=== PATIENT | female | born 1990 | race Caucasian/White ===

== ENCOUNTER 2017-10-09 23:17 | Outpatient (CLI) | payer OTHER ==
[~2017-10-09] VITALS: Ht 162.6 cm; Wt 77.1 kg
[~2017-10-09 23:17] MED LIST: CLEOCIN300 MG PO; FLEXERIL10 MG PO; FLINTSTONES1 TABLET PO; HYDROCODON-ACE1 EAC7 PO; IBUPROFEN600 MG PO; LORTAB 5-325 M1 EACH PO; METHADONE10 MG PO; METHADOSE10 MG PO; MILK OF MAGN PO; MILK OF MAGNESI10 ML PO; MOTRIN600 MG PO; MOTRIN800 MG PO; Methadone PO; NAPROSYN500 MG PO; NAPROXEN500 MG PO; PERCOCET 5/31 TABLET PO; PRENATAL VITAM1 EAC3 PO; SEASONIQUE 01 TABLET PO; ULTRAM50 MG PO; ~No Medications
[2017-10-09 23:27] VITALS: BP 130/65
[2017-10-10 00:43] LABS: APPEARANCE SL.HAZY ((CLEAR)); BILIRUBIN NEGATIVE; BLOOD NEGATIVE; COLOR AMBER ((YELLOW)); GLUCOSE (STRIP) NEGATIVE; KETONES NEGATIVE; LEUKOCYTES NEGATIVE; NITRITE NEGATIVE; PROTEIN (STRIP) NEGATIVE; SPECIFIC GRAVITY 1.019 (1.000-1.030)
[2017-10-10 00:51] LABS: AMPHETAMINE NEGATIVE (500 ng/mL); BACTERIA RARE /HPF; BENZODIAZEPINES NEGATIVE (150 ng/mL); COCAINE NEGATIVE (150 ng/mL); EPITHELIAL CELLS 2+ /HPF; HYALINE CASTS 0-5 /LPF; METHADONE PRESUMPTIVE POSITIVE (200 ng/mL); METHAMPHETAMINE NEGATIVE (500 ng/mL); MUCUS TRACE /LPF; OPIATES (MORPHINE) NEGATIVE (100 ng/mL); PHENCYCLIDINE NEGATIVE (25 ng/mL); RED BLOOD CELLS 0-5 /HPF (0-5); THC CANNABINOIDS NEGATIVE (50 ng/mL); TRICYCLIC ANTIDEPRESSANTS NEGATIVE (300 ng/mL); UCUL ADDED? YES
[2017-10-10 00:52] LABS: BARBITURATES NEGATIVE (200 ng/mL); BUPRENORPHINE NEGATIVE (10 ng/mL); OXYCODONE NEGATIVE (100 ng/mL); PROPOXYPHENE NEGATIVE (300 ng/mL)
[2017-10-10 00:56] LABS: BASOPHIL (%) 0.1 % (0-1); EOSINOPHIL (%) 0.1 % (0-5); HEMATOCRIT 34.9 % (36.0-46.0); IMMATURE GRANULOCYTE (%) 0.6 % (0.0-0.7); LYMPHOCYTE (%) 5.3 % (15-42); LYMPHOCYTE COUNT 0.7 K/uL (1.0-2.8); MCH 32.7 PG (29.0-34.0); MCHC 34.4 G/DL (30.0-36.0); MCV 95.1 FL (83-99); MONOCYTE (%) 4.4 % (3-12); MONOCYTE COUNT 0.6 K/uL (0-0.8); NEUTROPHIL (%) 89.5 % (45-76); NEUTROPHIL COUNT 11.9 K/uL (1.8-6.4); PLATELET COUNT 163 K/uL (156-360); RBC DIS.WIDTH-CV 12.7 % (11.8-14.6); RBC DIS.WIDTH-SD 43.4 % (39-53); RED BLOOD COUNT 3.67 M/uL (3.80-5.20); WHITE BLOOD COUNT 13.3 K/uL (4.1-10.2)
[2017-10-10 01:05] LABS: ALBUMIN 3.2 g/dL (3.2-4.8); CHLORIDE 105 mEq/L (99-109); POTASSIUM 3.5 mEq/L (3.7-5.4); SODIUM 138 mEq/L (136-147)
[2017-10-10 01:08] LABS: GLUCOSE 93 mg/dL (70-99); TOTAL PROTEIN 6.2 g/dL (6.4-8.3)
[2017-10-10 01:10] LABS: TOTAL BILIRUBIN 0.4 mg/dL (0.0-1.0)
[2017-10-10 01:11] LABS: ALKALINE PHOSPHATASE 192 IU/L (3-129); CREATININE 0.6 mg/dL (0.6-1.3); GFR ESTIMATE (CALCULATED) > 59 mL/min/
[2017-10-10 01:12] LABS: UREA NITROGEN (BUN) 5 mg/dL (9-23)
[2017-10-10 01:13] LABS: AST (GOT) 40 IU/L (2-34)
[2017-10-10 01:14] LABS: ALT (GPT) 24 IU/L (3-49)
[2017-10-10] MEDS ORDERED: PRENATAL TABLE1 EACH PO (02:10)
[2017-10-10] MEDS ORDERED: METHADONE 22 MG/1 ML PO (02:11)
[2017-10-10 03:29] VITALS: BP 107/57
[2017-10-10 07:41] VITALS: BP 110/54
== END 2017-10-10 08:20 | disposition home or self-care (01) ==
LOC: LDRP-OP 23:17 → 2WEST 23:18 → LDRP-OP 01-05 13:31
PROVIDERS: Advanced Practice Midwife
DX: O26.893 Other specified pregnancy related conditions, third trimester (principal); R11.2 Nausea with vomiting, unspecified; Z3A.32 32 weeks gestation of pregnancy; R19.7 Diarrhea, unspecified; O99.323 Drug use complicating pregnancy, third trimester; F11.90 Opioid use, unspecified, uncomplicated
CPT/HCPCS: 59025; 80053; 80074; 81003; 82731; 85025; 87086; G0378; J2405; J7120

== ENCOUNTER 2017-11-14 09:01 | Outpatient (CLI) | payer OTHER ==
[~2017-11-14] VITALS: Ht 162.6 cm; Wt 81.6 kg
[~2017-11-14 09:01] MED LIST changes: +METHADONE 22 MG/1 ML PO; +PRENATAL TABLE1 EACH PO
[2017-11-14 09:18] LABS: BASOPHIL (%) 0.2 % (0-1); EOSINOPHIL (%) 0.3 % (0-5); HEMATOCRIT 34.4 % (36.0-46.0); HEMOGLOBIN 11.9 G/DL (11.9-15.5); IMMATURE GRANULOCYTE (%) 0.7 % (0.0-0.7); LYMPHOCYTE (%) 21.6 % (15-42); LYMPHOCYTE COUNT 2.1 K/uL (1.0-2.8); MCH 33.1 PG (29.0-34.0); MCHC 34.6 G/DL (30.0-36.0); MCV 95.6 FL (83-99); MONOCYTE (%) 5.2 % (3-12); MONOCYTE COUNT 0.5 K/uL (0-0.8); NEUTROPHIL COUNT 7.2 K/uL (1.8-6.4); PLATELET COUNT 194 K/uL (156-360); RBC DIS.WIDTH-CV 13.2 % (11.8-14.6); RBC DIS.WIDTH-SD 46.5 % (39-53); WHITE BLOOD COUNT 9.9 K/uL (4.1-10.2)
[2017-11-14 09:28] LABS: AMYLASE 49 IU/L (1-118); CHLORIDE 108 mEq/L (99-109); POTASSIUM 3.7 mEq/L (3.7-5.4); SODIUM 137 mEq/L (136-147)
[2017-11-14 09:30] LABS: GLUCOSE 116 mg/dL (70-99)
[2017-11-14 09:33] LABS: SERUM ETHYL ALCOHOL < 10 mg/dL
[2017-11-14 09:34] LABS: CREATININE 0.6 mg/dL (0.6-1.3); GFR ESTIMATE (CALCULATED) > 59 mL/min/
[2017-11-14 09:35] LABS: UREA NITROGEN (BUN) 8 mg/dL (9-23)
[2017-11-14 09:37] VITALS: BP 118/65
[2017-11-14 09:37] LABS: LIPASE 10 U/L (1.0-51.0)
[2017-11-14] MEDS ORDERED: ZYPREXA20 MG PO (09:42)
[2017-11-14 09:59] LABS: QUANTITATIVE HCG 39199.9 MIU/ML
[2017-11-14 12:14] LABS: APPEARANCE SL.HAZY ((CLEAR)); BILIRUBIN NEGATIVE; BLOOD NEGATIVE; COLOR STRAW ((YELLOW)); GLUCOSE (STRIP) NEGATIVE; KETONES NEGATIVE; LEUKOCYTES TRACE; NITRITE NEGATIVE; PROTEIN (STRIP) NEGATIVE; SPECIFIC GRAVITY 1.003 (1.000-1.030); UROBILINOGEN 0.2 MG/DL (0.2-1.0)
[2017-11-14 12:20] VITALS: BP 128/69
[2017-11-14 12:20] LABS: BACTERIA NONE SEEN /HPF; EPITHELIAL CELLS 1+ /HPF; MUCUS NONE SEEN /LPF; RED BLOOD CELLS 0-5 /HPF (0-5); UCUL ADDED? NO; WHITE BLOOD CELLS 0-5 /HPF (0-5)
[2017-11-14 12:26] LABS: AMPHETAMINE NEGATIVE (500 ng/mL); BARBITURATES NEGATIVE (200 ng/mL); BENZODIAZEPINES NEGATIVE (150 ng/mL); BUPRENORPHINE NEGATIVE (10 ng/mL); COCAINE NEGATIVE (150 ng/mL); METHADONE PRESUMPTIVE POSITIVE (200 ng/mL); METHAMPHETAMINE NEGATIVE (500 ng/mL); OPIATES (MORPHINE) NEGATIVE (100 ng/mL); OXYCODONE NEGATIVE (100 ng/mL); PHENCYCLIDINE NEGATIVE (25 ng/mL); PROPOXYPHENE NEGATIVE (300 ng/mL); THC CANNABINOIDS NEGATIVE (50 ng/mL); TRICYCLIC ANTIDEPRESSANTS NEGATIVE (300 ng/mL)
== END 2017-11-14 14:20 | disposition home or self-care (01) ==
LOC: TRA 09:01 → EDSTATUS 09:25 → LDRP-OP 09:31 → 2WEST 09:32
PROVIDERS: Nurse Practitioner Family
DX: O9A.213 Injury, poisoning and certain other consequences of external causes complicating pregnancy, third trimester (principal); V49.40XA Driver injured in collision with unspecified motor vehicles in traffic accident, initial encounter; Y92.410 Unspecified street and highway as the place of occurrence of the external cause; S80.12XA Contusion of left lower leg, initial encounter; O99.323 Drug use complicating pregnancy, third trimester; Z79.891 Long term (current) use of opiate analgesic; O99.333 Smoking (tobacco) complicating pregnancy, third trimester
CPT/HCPCS: 59025; 73590; 76816; 76818; 80048; 81003; 82150; 83690; 84702; 85025; 86850; 86900; 86901; G0378; G0480

== ENCOUNTER 2017-11-29 08:03 | Inpatient (IN) | payer OTHER ==
[~2017-11-29] VITALS: Ht 162.6 cm; Wt 83.0 kg
[2017-11-29] VITALS (21 sets, daily range): BP systolic 91–133; BP diastolic 51–60
[~2017-11-29 08:03] MED LIST changes: +ZYPREXA20 MG PO
[2017-11-29 11:19] LABS: EOSINOPHIL (%) 0.3 % (0-5); HEMATOCRIT 33.9 % (36.0-46.0); HEMOGLOBIN 11.6 G/DL (11.9-15.5); LYMPHOCYTE (%) 30.4 % (15-42); MCH 32.2 PG (29.0-34.0); MCHC 34.2 G/DL (30.0-36.0); MCV 94.2 FL (83-99); MONOCYTE (%) 5.1 % (3-12); NEUTROPHIL (%) 63.5 % (45-76); PLATELET COUNT 154 K/uL (156-360); RBC DIS.WIDTH-CV 13.2 % (11.8-14.6); RBC DIS.WIDTH-SD 45.8 % (39-53); WHITE BLOOD COUNT 7.5 K/uL (4.1-10.2)
[2017-11-29 11:20] LABS: BASOPHIL (%) 0.3 % (0-1); IMMATURE GRANULOCYTE (%) 0.4 % (0.0-0.7); LYMPHOCYTE COUNT 2.3 K/uL (1.0-2.8); MONOCYTE COUNT 0.4 K/uL (0-0.8); NEUTROPHIL COUNT 4.8 K/uL (1.8-6.4)
[2017-11-29 11:44] LABS: ALKALINE PHOSPHATASE 264 IU/L (3-129); ALT (GPT) 9 IU/L (3-49); AST (GOT) 19 IU/L (2-34); CHLORIDE 109 MEQ/L (99-109); CREATININE 0.5 MG/DL (0.6-1.3); GFR ESTIMATE (CALCULATED) > 59 mL/min/; GLUCOSE 130 mg/dL (70-99); LACTATE DEHYDROGENASE 152 IU/L (20-246); POTASSIUM 3.5 MEQ/L (3.7-5.4); SODIUM 138 MEQ/L (136-147); TOTAL BILIRUBIN 0.4 MG/DL (0.0-1.0); UREA NITROGEN (BUN) 6 mg/dL (9-23); URIC ACID 6.3 mg/dL (3.1-9.2)
[2017-11-29 12:32] LABS: AMPHETAMINE NEGATIVE (500 ng/mL); BARBITURATES NEGATIVE (200 ng/mL); BENZODIAZEPINES NEGATIVE (150 ng/mL); BUPRENORPHINE NEGATIVE (10 ng/mL); COCAINE NEGATIVE (150 ng/mL); METHADONE PRESUMPTIVE POSITIVE (200 ng/mL); METHAMPHETAMINE NEGATIVE (500 ng/mL); OPIATES (MORPHINE) NEGATIVE (100 ng/mL); OXYCODONE NEGATIVE (100 ng/mL); PHENCYCLIDINE NEGATIVE (25 ng/mL); PROPOXYPHENE NEGATIVE (300 ng/mL); THC CANNABINOIDS NEGATIVE (50 ng/mL); TRICYCLIC ANTIDEPRESSANTS NEGATIVE (300 ng/mL)
[2017-11-29 12:37] LABS: UR CREATININE CONCENTRATION 159.4 MG/DL
[2017-11-29 12:56] LABS: GROUP B STREP NEGATIVE (NEGATIVE)
[2017-11-30] VITALS (9 sets, daily range): BP systolic 107–130; BP diastolic 55–73
[2017-11-30 00:33] LABS: BICARBONATE 23.1 mEq/L (22-26); CARBOXY HGB 1.5 % (0-5); METHEMOGLOBIN 1.5 % (0-1.5); PCO2 54 mm Hg (35-45)
[2017-11-30 00:34] LABS: COMMENTS - BLOOD GASES ARTERIAL; PO2 < 32 mm Hg (80-100); SITE CORD BLOOD; pH 7.24 (7.35-7.45)
[2017-11-30 00:36] LABS: BASE EXCESS -4.3 mEq/L (-3 to +3); BICARBONATE 20.2 mEq/L (22-26); CARBOXY HGB 2.2 % (0-5); COMMENTS - BLOOD GASES VENOUS; METHEMOGLOBIN 1.5 % (0-1.5); PCO2 35 mm Hg (35-45); PO2 35 mm Hg (80-100); SITE CORD BLOOD; pH 7.37 (7.35-7.45)
[2017-12-01 07:36] LABS: BASOPHIL (%) 0.3 % (0-1); EOSINOPHIL COUNT 0.1 K/uL (0-0.3); HEMATOCRIT 30.8 % (36.0-46.0); HEMOGLOBIN 10.5 G/DL (11.9-15.5); IMMATURE GRANULOCYTE (%) 0.5 % (0.0-0.7); LYMPHOCYTE (%) 34.9 % (15-42); LYMPHOCYTE COUNT 2.7 K/uL (1.0-2.8); MCH 32.1 PG (29.0-34.0); MCHC 34.1 G/DL (30.0-36.0); MCV 94.2 FL (83-99); MONOCYTE (%) 6.5 % (3-12); MONOCYTE COUNT 0.5 K/uL (0-0.8); NEUTROPHIL (%) 56.8 % (45-76); NEUTROPHIL COUNT 4.5 K/uL (1.8-6.4); PLATELET COUNT 161 K/uL (156-360); RBC DIS.WIDTH-SD 44.6 % (39-53); RED BLOOD COUNT 3.27 M/uL (3.80-5.20); WHITE BLOOD COUNT 7.9 K/uL (4.1-10.2)
== END 2017-12-01 11:59 | disposition home or self-care (01) | DRG 775 ==
LOC: LDRP-OP 08:03 → 2WEST 08:04 → LDRP-OP 15:09 → 2WEST 11-30 00:11 → LDRP-OP 01-05 08:31
PROVIDERS: Advanced Practice Midwife; Obstetrics & Gynecology; Obstetrics & Gynecology Obstetrics
PROC: 3E0R3BZ Introduction of Anesthetic Agent into Spinal Canal, Percutaneous Approach (ICD-10-PCS; principal; 2017-11-29)
PROC: 00HU33Z Insertion of Infusion Device into Spinal Canal, Percutaneous Approach (ICD-10-PCS; principal; 2017-11-29)
PROC: 10907ZC Drainage of Amniotic Fluid, Therapeutic from Products of Conception, Via Natural or Artificial Opening (ICD-10-PCS; principal; 2017-11-29)
PROC: 3E033VJ Introduction of Other Hormone into Peripheral Vein, Percutaneous Approach (ICD-10-PCS; principal; 2017-11-29)
PROC: 0UQMXZZ Repair Vulva, External Approach (ICD-10-PCS; 2017-11-30)
PROC: 0HQ9XZZ Repair Perineum Skin, External Approach (ICD-10-PCS; 2017-11-30)
PROC: 10E0XZZ Delivery of Products of Conception, External Approach (ICD-10-PCS; 2017-11-30)
DX: O70.0 First degree perineal laceration during delivery (principal); O71.82 Other specified trauma to perineum and vulva; O69.81X0 Labor and delivery complicated by cord around neck, without compression, not applicable or unspecified; O99.324 Drug use complicating childbirth; F11.20 Opioid dependence, uncomplicated; O99.344 Other mental disorders complicating childbirth; F41.0 Panic disorder [episodic paroxysmal anxiety]; F31.9 Bipolar disorder, unspecified; Z3A.39 39 weeks gestation of pregnancy; Z37.0 Single live birth; O99.334 Smoking (tobacco) complicating childbirth; F17.210 Nicotine dependence, cigarettes, uncomplicated; O99.89 Other specified diseases and conditions complicating pregnancy, childbirth and the puerperium; M08.00 Unspecified juvenile rheumatoid arthritis of unspecified site; O99.354 Diseases of the nervous system complicating childbirth; G43.C0 Periodic headache syndromes in child or adult, not intractable; G43.909 Migraine, unspecified, not intractable, without status migrainosus
CPT/HCPCS: 36600; 80053; 82570; 82803; 82948; 83615; 84156; 84550; 85025; 86850; 86900; 86901; 87653; C1755; G0378; J7120

== ENCOUNTER → 2018-02-13 | Outpatient (CLI) | payer OTHER ==
[~2018-02-13] VITALS: Ht 165.1 cm; Wt 70.2 kg
[~2018-02-13] MED LIST changes: +ADDERALL20 MG PO; +ADDERALL30 MG PO
== END | disposition home or self-care (01) ==
LOC: AMB 13:30
PROC: 0DB78ZX Excision of Stomach, Pylorus, Via Natural or Artificial Opening Endoscopic, Diagnostic (ICD-10-PCS; principal; 2018-02-13)
DX: R10.13 Epigastric pain (principal); R11.2 Nausea with vomiting, unspecified; F17.200 Nicotine dependence, unspecified, uncomplicated; Z80.1 Family history of malignant neoplasm of trachea, bronchus and lung; Z82.49 Family history of ischemic heart disease and other diseases of the circulatory system; Z83.3 Family history of diabetes mellitus; Z80.0 Family history of malignant neoplasm of digestive organs; Z88.0 Allergy status to penicillin
CPT/HCPCS: 88305; 88342 TC; J2250